=== PATIENT | female | born 1960 | race Caucasian/White ===

== ENCOUNTER 2017-09-06 17:48 | Emergency (ER) | payer MEDICAID ==
[~2017-09-06] VITALS: Ht 565.3 cm; Wt 70.0 kg
[2017-09-06] MEDS ORDERED: aspirin 81mg tab.chew PO ONE (18:20)
[2017-09-06 18:42] LABS: BASOPHILS % (AUTO) 0.5 % (0-1); EOSINOPHILS % (AUTO) 0.1 % (0-6); HEMATOCRIT 41.6 % (35.0-45.0); HEMOGLOBIN 14.2 g/dl (12.0-16.0); LYMPHOCYTES % (AUTO) 23.1 % (21-51); MEAN CORPUSCULAR HGB CONC 34.1 % (33.0-36.5); MEAN CORPUSCULAR VOLUME 90.8 FL (78-98); MEAN PLATELET VOLUME 7.4 FL (7.4-10.4); MONOCYTES # (AUTO) 0.3 X10'3 (0-0.9); NEUTROPHILS # (AUTO) 6.3 X10'3 (1.8-7.7); NEUTROPHILS % (AUTO) 73.3 % (42-75); PLATELET COUNT 392 X10'3 (140-440); RED BLOOD COUNT 4.58 X10'6 (4.20-5.60); RED CELL DISTRIBUTION WIDTH 12.6 % (11.5-14.5); WHITE BLOOD COUNT 8.6 X10'3 (4.5-11.0)
[2017-09-06 18:45] LABS: INR 0.9 INR; PARTIAL THROMBOPLASTIN TIME 26 SECONDS (22-32); PROTHROMBIN TIME 9.5 SECONDS (9.0-12.0)
[2017-09-06 18:48] LABS: ALANINE AMINOTRANSFERASE 30 U/L (12-78); ALBUMIN/GLOBULIN RATIO 1.1 (1.1-1.5); ALKALINE PHOSPHATASE 53 IU/L (46-116); ANION GAP 10 (8-16); ASPARTATE AMINO TRANSFERASE 14 U/L (10-37); BILIRUBIN,TOTAL 0.2 MG/DL (0.1-1.0); BLOOD UREA NITROGEN 11 MG/DL (7-18); CALCIUM 9.3 MG/DL (8.5-10.1); CHLORIDE 104 MMOL/L (99-107); CREATININE 0.92 MG/DL (0.40-0.90); GLUCOSE 101 MG/DL (70-104); POTASSIUM 4.3 MMOL/L (3.5-5.1); SODIUM 140 MMOL/L (135-145); TOTAL CARBON DIOXIDE 26.3 MMOL/L (24-32); TOTAL PROTEIN 7.6 G/DL (6.4-8.2); eGFR 63 ML/MIN
[2017-09-06 19:18] VITALS: BP 157/79
[2017-09-06 19:21] LABS: CLARITY,URINE CLEAR (Clear); COLOR,URINE STRAW (Yellow); GLUCOSE, URINE NEGATIVE (Neg); KETONES,URINE NEGATIVE (Neg); LEUKOCYTE ESTERASE ,URINE NEGATIVE (Neg); NITRITES, URINE NEGATIVE (Neg); OCCULT BLOOD,URINE LARGE (Neg); PROTEIN,URINE NEGATIVE (Neg); UROBILINOGEN,URINE 0.2 E.U/dL (0.2-1.0)
[2017-09-06 19:23] LABS: UA COLLECTION TYPE CLN CATCH MIDSTREAM
[2017-09-06 19:27] LABS: BACTERIA,URINE NONE SEEN /HPF (Neg); SQUAMOUS EPITHELIAL CELL,UR FEW /LPF (FEW); WBC,URINE NONE SEEN /HPF (0-4)
== END 2017-09-06 19:20 | disposition home or self-care (01) ==
LOC: ER 17:49
DX: R42 Dizziness and giddiness (principal); R07.89 Other chest pain; R53.1 Weakness; M79.601 Pain in right arm; R10.31 Right lower quadrant pain; Z88.5 Allergy status to narcotic agent
CPT/HCPCS: 36415; 71045; 80053; 81001; 83735; 83880; 84484; 85025; 85610; 85730; 93005; 99285

== ENCOUNTER 2018-02-01 07:54 | Emergency (ER) | payer MEDICAID ==
[~2018-02-01] VITALS: Ht 162.6 cm; Wt 67.8 kg
[2018-02-01 07:56] VITALS: BP 157/83
[2018-02-01] MEDS ORDERED: LOPE2TAB25 PO (08:50)
[2018-02-01] MEDS ORDERED: ONDA4TAB12 PO (08:50)
[2018-02-01] MEDS ORDERED: LIDO700A32 TOP (08:50)
[2018-02-01] MEDS ORDERED: HYDR50TA65 PO (08:50)
== END 2018-02-01 09:07 | disposition home or self-care (01) ==
LOC: ER 07:54
DX: F11.23 Opioid dependence with withdrawal (principal); G89.29 Other chronic pain; M54.5 Low back pain; M54.6 Pain in thoracic spine; R19.7 Diarrhea, unspecified; R11.0 Nausea; F41.9 Anxiety disorder, unspecified
CPT/HCPCS: 99283

== ENCOUNTER 2018-08-25 08:01 | Emergency (ER) | payer MEDICAID ==
[~2018-08-25] VITALS: Ht 162.6 cm; Wt 72.3 kg
[~2018-08-25 08:01] MED LIST: HYDR50TA65 PO; LIDO700A32 TOP; LOPE2TAB25 PO; ONDA4TAB12 PO
[2018-08-25 08:02] VITALS: BP 119/73
[2018-08-25] MEDS ORDERED: ketorolac tromethamine 15mg/ml inj. IM ONE (08:40)
[2018-08-25 08:56] LABS: CLARITY,URINE CLEAR (Clear); COLOR,URINE STRAW (Yellow); GLUCOSE, URINE NEGATIVE (Neg); KETONES,URINE NEGATIVE (Neg); LEUKOCYTE ESTERASE ,URINE NEGATIVE (Neg); NITRITES, URINE NEGATIVE (Neg); OCCULT BLOOD,URINE MODERATE (Neg); PROTEIN,URINE NEGATIVE (Neg); UROBILINOGEN,URINE 0.2 E.U/dL (0.2-1.0)
[2018-08-25 09:02] LABS: UA COLLECTION TYPE CLN CATCH MIDSTREAM
[2018-08-25 09:04] LABS: BACTERIA,URINE FEW /HPF (Neg); RBC,URINE 0-2 /HPF (0-2); SQUAMOUS EPITHELIAL CELL,UR FEW /LPF (FEW); WBC,URINE 0-4 /HPF (0-4)
== END 2018-08-25 09:36 | disposition home or self-care (01) ==
LOC: ER 08:02
DX: R31.9 Hematuria, unspecified (principal); R10.9 Unspecified abdominal pain; Z88.5 Allergy status to narcotic agent; Z79.899 Other long term (current) drug therapy
CPT/HCPCS: 81001; 96372; 99283; J1885

== ENCOUNTER 2024-01-18 16:35 | Emergency (ER) | payer MEDICAID ==
[~2024-01-18] VITALS: Ht 165.1 cm; Wt 54.1 kg
[~2024-01-18 16:35] MED LIST changes: +ONDA-243 PO; -ONDA4TAB12 PO
[2024-01-18 16:45] VITALS: BP 146/89; PULSE 69; TEMP 97.8; O2SAT 99
[2024-01-18] MEDS: hydrOXYzine 25 MG tablet PO ONE (17:22)
[2024-01-18 17:24] VITALS: RESP 18
== END 2024-01-18 17:26 | disposition home or self-care (01) ==
LOC: ER 16:36
DX: F41.0 Panic disorder [episodic paroxysmal anxiety] (principal); Z76.0 Encounter for issue of repeat prescription; Z88.5 Allergy status to narcotic agent; Z79.899 Other long term (current) drug therapy
CPT/HCPCS: 99283; Q0177